=== PATIENT | male | born 1995 | race Caucasian/White ===

== ENCOUNTER 2020-02-10 17:24 | Emergency (ER) | payer BC ==
[~2020-02-10] VITALS: Ht 188 cm; Wt 90.9 kg
[2020-02-10] MEDS ORDERED: LIDOCAINE 2% 20 ML VIAL. ONE (17:51)
[2020-02-10 18:06] VITALS: BP 125/78
--- NOTE | 2020-02-10 18:26 | PHYS DOC ---
Past History Past Medical History: No Pertinent History Past Surgical History: No Surgical History Alcohol Use: None General Adult EDM: Chief Complaint: LACERATION/AVULSION HPI: HPI: 25-year-old male presents with left hand laceration. The patient was shaking up a milk bottle when it broke and lacerated his left hand at the base of the thumb. He did tell with deep enough to need sutures. He was able to control the bleeding with direct pressure. His tetanus is within 1 year. He denies any other injuries or complaints. Review of Systems: Review of Systems: Constitutional: Denies fever or chills Eyes: Denies change in visual acuity HENT: Denies nasal congestion or sore throat Respiratory: Denies cough or shortness of breath Cardiovascular: Denies chest pain or edema GI: Denies abdominal pain, nausea, vomiting, bloody stools or diarrhea : Denies dysuria Musculoskeletal: Denies back pain or joint pain Integument: 1.5 cm laceration of the left hand Neurologic: Denies headache, focal weakness or sensory changes Endocrine: Denies polyuria or polydipsia Lymphatic: Denies swollen glands Psychiatric: Denies depression or anxiety Heart Score: Risk Factors: Risk Factors: DM, Current or recent (<one month) smoker, HTN, HLP, family history of CAD, obesity. Risk Scores: Score 0 - 3: 2.5% MACE over next 6 weeks - Discharge Home Score 4 - 6: 20.3% MACE over next 6 weeks - Admit for Clinical Observation Score 7 - 10: 72.7% MACE over next 6 weeks - Early Invasive Strategies Current Medications: Current Meds: Current Medications Medications (Trade) Dose Ordered Sig/[facility] Start Time Stop Time Status Last Admin Dose Admin Lidocaine HCl 20 ml STK-MED ONCE 02/10/20 17:51 02/10/20 17:51 DC Allergies: Allergies: Allergies Coded Allergies Type Severity Reaction Last Updated Verified No Known Drug Allergies 02/10/20 No Physical Exam: PE: Constitutional: Well developed, well nourished, no acute distress, non-toxic appearance. [] HENT: Normocephalic, atraumatic, bilateral external ears normal, oropharynx moist, no oral exudates, nose normal. [] Eyes: PERRLA, EOMI, conjunctiva normal, no discharge. [] Neck: Normal range of motion, no tenderness, supple, no stridor. [] Cardiovascular:Heart rate regular rhythm, no murmur [] Lungs & Thorax: Bilateral breath sounds clear to auscultation [] Abdomen: Bowel sounds normal, soft, no tenderness, no masses, no pulsatile masses. [] Skin: 1.5 cm linear laceration of the left hand [] Back: No tenderness, no CVA tenderness. [] Extremities: No tenderness, no cyanosis, no clubbing, ROM intact, no edema. [] Neurologic: Alert and oriented X 3, normal motor function, normal sensory function, no focal deficits noted. [] Psychologic: Affect normal, judgement normal, mood normal. [] Current Patient Data: Vital Signs: Vital Signs Date Time Temp Pulse Resp B/P (MAP) Pulse Ox O2 Delivery O2 Flow Rate FiO2 02/10/20 18:06 98.0 69 18 125/78 (94) 100 EKG: EKG: [] Radiology/Procedures: Radiology/Procedures: [] Course & Med Decision Making: Course & Med Decision Making Pertinent Labs and Imaging studies reviewed. (See chart for details) [] Dragon Disclaimer: Dragon Disclaimer: This electronic medical record was generated, in whole or in part, using a voice recognition dictation system. Laceration Repair Lac Repair Indication: [] 1.5 cm linear laceration left hand at the base of the thumb. Procedure: Verbal consent was obtained from the patient for suture repair of his left hand laceration. Wound was thoroughly irrigated with normal saline under pressure. No foreign bodies were found. The wound was anesthetized with 2% lidocaine without epinephrine. A total of 3 cc was used. Once good anesthesia was achieved, I repaired the wound with three 3-0 Ethilon sutures in interrupted fashion. There was good skin approximation. The bleeding was controlled. The patient's tetanus is up-to-date. Total repaired wound length: 1.5 cm Other Items: None The patient tolerated the procedure well Complications: None Departure Departure: Impression: Primary Impression: Laceration of left hand without foreign body Qualified Codes: S61.412A - Laceration without foreign body of left hand, initial encounter Disposition: HOME/RESIDENCE PRIOR TO ADM Condition: STABLE Referrals: PCP,NO (PCP) Patient Instructions: Sutured Wound Care, [id number] Justification of Admission: Justification of Admission: Justification of Admission Dx: N/A LOBO HARRISON DO Feb 10, 2020 18:26
== END 2020-02-10 18:33 | disposition home or self-care (01) ==
LOC: ER 17:24
DX: S61.412A Laceration without foreign body of left hand, initial encounter (principal); W26.8XXA Contact with other sharp object(s), not elsewhere classified, initial encounter; Y93.89 Activity, other specified; Y92.89 Other specified places as the place of occurrence of the external cause; Y99.8 Other external cause status
CPT/HCPCS: 12001; 99282